=== PATIENT | male | born 1965 | race African-American/Black ===

== ENCOUNTER 2017-08-01 00:05 | Observation (INO) | payer MEDICARE ==
[2017-08-01] MEDS ORDERED: NS 0.9% 1000 ML* 1,000 ML IV SCH ×2 (00:45→12:00)
[2017-08-01 01:22] LABS: ABS Basophils 0 10^3/ul (0-0.2); ABS Eosinophils 0.1 10^3/ul (0-0.6); ABS Lymphocytes 0.3 10^3/ul (1.0-4.8); ABS Monocytes 0.8 10^3/ul (0-0.8); ABS Neutrophils 7.9 10^3/ul (1.5-7.7); ABS Nucleated RBC 0 10^3/ul; Hematocrit 42 % (42-52); Mean Corpuscular HGB Conc 33 g/dl (31-36); Mean Corpuscular Hemoglobin 26 pg (27-31); Mean Corpuscular Volume 76 fL (80-94); Mean Platelet Volume 8 um3 (7.4-10.4); Nucleated Red Blood Cells % 0; Platelet Count 245 10^3/ul (150-450); Red Blood Count 5.48 10^6/ul (4.0-5.4); Red Cell Distribution Width 15 % (10.5-15); White Blood Count 9.2 10^3/ul (3.5-10.8)
[2017-08-01 01:30] LABS: INR 1.06 (0.77-1.02)
[2017-08-01 01:33] LABS: EGFR Non-African American 68.8 (>60)
[2017-08-01] MEDS ORDERED: NS 0.9% 1000 ML* 1,000 ML IV ONE (03:36)
[2017-08-01] MEDS ORDERED: Iohexol 350* (CONTRAST) 500 ML MDV IV ONE (03:44)
[2017-08-01 04:46] LABS: Urine Appearance Clear; Urine Blood Negative (Negative); Urine Color Yellow; Urine Ketones Negative (Negative); Urine Protein Negative (Negative); Urine Specific Gravity 1.016 (1.010-1.030); Urine Urobilinogen Negative (Negative)
--- NOTE | 2017-08-01 07:36 | ED ---
Wilder Rodas Natalie, scribed for Bo Breaux MD on 08/01/17 at 0110 . Syncope/Near Syncope - HPI Summary HPI Summary: The pt is a 52 y/o M BIBA to the ED c/o syncope two hours ago. The pt starting feeling warm and diaphoretic, and then doesnt remember what happened. Per the pts significant other, the pt had slurred speech, had a blank stare, and unresponsive for about 15 minutes. He was in this state until EMS arrived. The pt feels normal in the ED. Pt additionally c/o coughing, normal urination, and bilateral pedal edema without pain. Pt denies CP, headache, and ear ache. He has had similar episodes of this, with last one happening three months ago. The pt doesnt take any medications. He is diagnosed with cerebral palsy. - History Of Current Complaint Chief Complaint: EDSyncope Time Seen by Provider: 08/01/17 00:27 Hx Obtained From: Patient, Family/Urban Sociologist Hx From Patient Unobtainable Due To: Other - pt doesn't recall all of the events that occurred Onset/Duration: Lasting Minutes - 15 minutes, Resolved Timing: Minutes Associated Head Trauma: No Aggravating Factor(s): Nothing Alleviating Factor(s): Nothing Associated Signs And Symptoms: Diaphoresis, Other - POSITIVE: "feeling warm," coughing, normal urination, bilateral pedal edema, unresponsive, blank stare, slurred speech; NEGATIVE: CP, headache, ear ache - Allergies/Home Medications Allergies/Adverse Reactions: Allergies Allergy/AdvReac Type Severity Reaction Status Date / Time No Known Allergies Allergy Verified 08/01/17 00:34 Home Medications: Home Medications NK [No Home Medications Reported] 08/01/17 [History Confirmed 08/01/17] PMH/Surg Hx/FS Hx/Imm Hx Previously Healthy: No Endocrine/Hematology History: Reports: Hx Diabetes Neurological History: Reports: Other Neuro Impairments/Disorders - cerebral palsy Infectious Disease History: No Infectious Disease History: Denies: Traveled Outside the [place] in Last 30 Days - Family History Known Family History: Positive: Diabetes Negative: Cardiac Disease Review of Systems Negative: Ear Ache Negative: Chest Pain Positive: Cough Positive: other - normal urination Positive: Edema - bilateral pedal edema without pain Positive: Syncope. Negative: Headache All Other Systems Reviewed And Are Negative: Yes Physical Exam Triage Information Reviewed: Yes Vital Signs On Initial Exam: Initial Vitals Temp Pulse Resp BP Pulse Ox 98.1 F 104 19 144/86 99 08/01/17 00:05 08/01/17 00:05 08/01/17 00:05 08/01/17 00:05 08/01/17 00:05 Vital Signs Reviewed: Yes Appearance: Positive: Well-Appearing, No Pain Distress Skin: Positive: Warm, Skin Color Reflects Adequate Perfusion, Dry Head/Face: Positive: Normal Head/Face Inspection Eyes: Positive: EOMI, YARI ENT: Positive: Normal ENT inspection Neck: Positive: Supple, Nontender Respiratory/Lung Sounds: Positive: Clear to Auscultation, Breath Sounds Present Cardiovascular: Positive: RRR Abdomen Description: Positive: Nontender, Soft Bowel Sounds: Positive: Present Musculoskeletal: Positive: Other - bilateral pedal edema, calves swollen and nontender to palpitation, chronic bilateral leg weakness Neurological: Positive: Normal, Sensory/Motor Intact, Alert, Oriented to Person Place, Time Psychiatric: Positive: Affect/Mood Appropriate Diagnostics - Vital Signs Vital Signs Temp Pulse Resp BP Pulse Ox 08/01/17 00:32 96 17 98 08/01/17 00:30 140/83 08/01/17 00:05 98.1 F 104 19 144/86 99 - Laboratory Lab Results: Lab Results 08/01/17 08/01/17 08/01/17 Range/Units 01:07 01:07 01:07 WBC (3.5-10.8) 10^3/ul RBC (4.0-5.4) 10^6/ul Hgb (14.0-18.0) g/dl Hct (42-52) % MCV (80-94) fL MCH (27-31) pg MCHC (31-36) g/dl RDW (10.5-15) % Plt Count (150-450) 10^3/ul MPV (7.4-10.4) um3 Neut % (Auto) (38-83) % Lymph % (Auto) (25-47) % [place] % (Auto) (1-9) % Eos % (Auto) (0-6) % Baso % (Auto) (0-2) % Absolute Neuts (auto) (1.5-7.7) 10^3/ul Absolute Lymphs (auto) (1.0-4.8) 10^3/ul Absolute Monos (auto) (0-0.8) 10^3/ul Absolute Eos (auto) (0-0.6) 10^3/ul Absolute Basos (auto) (0-0.2) 10^3/ul Absolute Nucleated RBC 10^3/ul Nucleated RBC % INR (Anticoag Therapy) 1.06 H (0.77-1.02) APTT 31.6 (26.0-36.3) seconds D-Dimer, Quantitative 252 H (Less Than 230) ng/mL Sodium 133 (133-145) mmol/L Potassium 3.7 (3.5-5.0) mmol/L Chloride 101 (101-111) mmol/L Carbon Dioxide 24 (22-32) mmol/L Anion Gap 8 (2-11) mmol/L BUN 12 (6-24) mg/dL Creatinine 1.12 (0.67-1.17) mg/dL Est GFR ( Amer) 88.5 (>60) Est GFR (Non-Af Amer) 68.8 (>60) BUN/Creatinine Ratio 10.7 (8-20) Glucose 112 H (70-100) mg/dL Lactic Acid (0.5-2.0) mmol/L Calcium 8.7 (8.6-10.3) mg/dL Magnesium 2.0 (1.9-2.7) mg/dL Total Bilirubin 0.60 (0.2-1.0) mg/dL AST 15 (13-39) U/L ALT 16 (7-52) U/L Alkaline Phosphatase 58 (34-104) U/L Troponin I 0.00 (<0.04) ng/mL C-Reactive Protein 33.85 H (< 5.00) mg/L B-Natriuretic Peptide 27 ( - 100) pg/mL Total Protein 7.5 (6.4-8.9) g/dL Albumin 3.9 (3.2-5.2) g/dL Globulin 3.6 (2-4) g/dL Albumin/Globulin Ratio 1.1 (1-3) Lipase 12 (11.0-82.0) U/L TSH 0.93 (0.34-5.60) mcIU/mL Urine Color Urine Appearance Urine pH (5-9) Ur Specific [place] (1.010-1.030) Urine Protein (Negative) Urine Ketones (Negative) Urine Blood (Negative) Urine Nitrate (Negative) Urine Bilirubin (Negative) Urine Urobilinogen (Negative) Ur Leukocyte Esterase (Negative) Urine Glucose (Negative) Urine Ascorbic Acid (Negative) 08/01/17 08/01/17 08/01/17 Range/Units 01:07 01:07 04:30 WBC 9.2 (3.5-10.8) 10^3/ul RBC 5.48 H (4.0-5.4) 10^6/ul Hgb 14.0 (14.0-18.0) g/dl Hct 42 (42-52) % MCV 76 L (80-94) fL MCH 26 L (27-31) pg MCHC 33 (31-36) g/dl RDW 15 (10.5-15) % Plt Count 245 (150-450) 10^3/ul MPV 8 (7.4-10.4) um3 Neut % (Auto) 86.4 H (38-83) % Lymph % (Auto) 3.0 L (25-47) % [place] % (Auto) 9.3 H (1-9) % Eos % (Auto) 1.0 (0-6) % Baso % (Auto) 0.3 (0-2) % Absolute Neuts (auto) 7.9 H (1.5-7.7) 10^3/ul Absolute Lymphs (auto) 0.3 L (1.0-4.8) 10^3/ul Absolute Monos (auto) 0.8 (0-0.8) 10^3/ul Absolute Eos (auto) 0.1 (0-0.6) 10^3/ul Absolute Basos (auto) 0 (0-0.2) 10^3/ul Absolute Nucleated RBC 0 10^3/ul Nucleated RBC % 0 INR (Anticoag Therapy) (0.77-1.02) APTT (26.0-36.3) seconds D-Dimer, Quantitative (Less Than 230) ng/mL Sodium (133-145) mmol/L Potassium (3.5-5.0) mmol/L Chloride (101-111) mmol/L Carbon Dioxide (22-32) mmol/L Anion Gap (2-11) mmol/L BUN (6-24) mg/dL Creatinine (0.67-1.17) mg/dL Est GFR ( Amer) (>60) Est GFR (Non-Af Amer) (>60) BUN/Creatinine Ratio (8-20) Glucose (70-100) mg/dL Lactic Acid 0.6 (0.5-2.0) mmol/L Calcium (8.6-10.3) mg/dL Magnesium (1.9-2.7) mg/dL Total Bilirubin (0.2-1.0) mg/dL AST (13-39) U/L ALT (7-52) U/L Alkaline Phosphatase (34-104) U/L Troponin I (<0.04) ng/mL C-Reactive Protein (< 5.00) mg/L B-Natriuretic Peptide ( - 100) pg/mL Total Protein (6.4-8.9) g/dL Albumin (3.2-5.2) g/dL Globulin (2-4) g/dL Albumin/Globulin Ratio (1-3) Lipase (11.0-82.0) U/L TSH (0.34-5.60) mcIU/mL Urine Color Yellow Urine Appearance Clear Urine pH 5.0 (5-9) Ur Specific [place] 1.016 (1.010-1.030) Urine Protein Negative (Negative) Urine Ketones Negative (Negative) Urine Blood Negative (Negative) Urine Nitrate Negative (Negative) Urine Bilirubin Negative (Negative) Urine Urobilinogen Negative (Negative) Ur Leukocyte Esterase Negative (Negative) Urine Glucose Negative (Negative) Urine Ascorbic Acid * H (Negative) Result Diagrams: 08/01/17 01:07 08/01/17 01:07 Lab Statement: Any lab studies that have been ordered have been reviewed, and results considered in the medical decision making process. - CT Chest/Thorax CTA CT Interpretation: No Acute Changes - No evidence of acute pathology. ED physician has reviewed this report. CT Interpretation Completed By: Radiologist - EKG 00:06 Cardiac Rate: NL, Tachycardia EKG Rhythm: Sinus Tachycardia - 109 BPM EKG Interpretation: Borderline ST elevation anterolateral leads. No ectopy. Course/Dx Course Of Treatment: BP noted and advised to follow up with PCP. Medications reviewed. SYNCOPE VERSES SEIZURE. ADMIT HOSPITALIST. NO CRITICAL CARE TIME. - Diagnoses Provider Diagnoses: Syncope Discharge - Discharge Plan Condition: Stable Disposition: ADMITTED TO [facility] Referrals: Bo Anaya [Primary Care Provider] - Additional Instructions: Your blood pressure was elevated during todays visit; please follow up with your primary care provider within a week for further evaluation. The documentation as recorded by the Wilder bhat Natalie accurately reflects the service I personally performed and the decisions made by me, Bo Breaux MD.
--- NOTE | 2017-08-01 07:50 | RAD ---
INDICATION: Syncope COMPARISON: None. TECHNIQUE: Single AP portable view of the chest was obtained. FINDINGS: Image quality is compromised due to the relative inferiority of a portable chest x-ray. The heart and mediastinum exhibit normal size and contour. The lungs are grossly clear. There is no evidence of a large pleural effusion. Visualized bones are normal for the patient's age. IMPRESSION: No radiographic evidence for acute cardiopulmonary abnormality on this portable chest x-ray.
--- NOTE | 2017-08-01 07:54 | RAD ---
INDICATION: Syncope and positive d-dimer COMPARISON: None TECHNIQUE: Axial source images were acquired following the administration of 77 mL Omnipaque [address] angiographic technique. Coronal and sagittal reconstructed images were constructed and reviewed. FINDINGS: There there are no filling defects in the pulmonary arteries to indicate acute pulmonary embolic disease. There are no focal infiltrates or effusions. There are no pulmonary parenchymal masses. The heart is normal in size. There is no evidence of pericardial effusion. There is no evidence of aortic aneurysm or dissection. There is no mediastinal, hilar, or axillary lymphadenopathy. Degenerative changes of thoracic spine includes loss of intervertebral disc height and mild anterior marginal osteophyte formation. Limited views of the upper abdomen show no abnormalities. IMPRESSION: No CT of evidence of pulmonary embolism or other acute intrathoracic pathology.
--- NOTE | 2017-08-01 08:21 | RAD ---
Indication: Syncope versus seizure. CT of the brain was performed without IV contrast. Ventricular structures are midline. No midline shift is noted. The extra-axial spaces are unremarkable. There is no evidence of intracranial mass or hemorrhage. No other high or low density lesions are identified. Mastoid air cells and paranasal sinuses are otherwise unremarkable. IMPRESSION: There is no evidence of intracranial mass or hemorrhage.
[2017-08-01] MEDS ORDERED: Ondansetron INJ* 2 MG/ML VIAL IV PRN (11:48)
[2017-08-01] MEDS: Heparin VIAL(*) 5000 UNITS/ML VIAL (FIVE THOUSAND) SUBCUT SCH ×2 (14:30→21:59)
--- NOTE | 2017-08-01 15:09 | RAD ---
INDICATION: Pain and swelling. COMPARISON: None TECHNIQUE: Duplex interrogation of the Lowerextremity was performed. FINDINGS: Deep veins: The common femoral, great saphenous, profunda femoris, proximal, mid, and distal deep femoral, popliteal and posterior tibial veins are patent. There is normal compressibility, augmentation, and phasic flow. The peroneal veins are not seen. This likely related to technical factors related to edema. Superficial veins: There are no findings of superficial thrombophlebitis. Popliteal fossa:There is no evidence of a popliteal cyst. Soft tissues: There is moderate calf edema bilaterally. IMPRESSION: MILDLY LIMITED EXAMINATION DUE TO CALF EDEMA. NO SONOGRAPHIC EVIDENCE OF DEEP VENOUS THROMBOSIS.
[2017-08-01] MEDS: Oseltamivir CAP* 75 MG PO SCH ×2 (16:11→21:58)
--- NOTE | 2017-08-01 17:06 | ECHO ---
Patient: GRACIELA GUTIERREZ [facility] Rec#: [id number] : 1965 Date: 08/01/2017 Age: 52y Height: 170.2 cm / 67.0 in Weight: 90.7 kg / 199.9 lbs Sex: M BSA: 2.02 Room#: [facility] Admit Date#: 08/01/2017 Type: Inpatient Referring: Shiraz Klein NP Reading: Josué Atkinson MD Soccer Player: Rhonda Lake RN RDCS Transthoracic Echocardiogram Indication: Syncope BP: 150/90 HR: 108 Rhythm: Tachycardia Findings History: HTN, DM, cerebral palsy, increased BMI Technical Comments: The study quality is fair. The study is technically limited due to patient body habitus. Completed at 1530. Left Ventricle: The left ventricular chamber size is normal. Mild to moderate concentric left ventricular hypertrophy is observed. Global left ventricular wall motion and contractility are within normal limits. There is normal left ventricular systolic function. The estimated ejection fraction is 60-65%. There is an E to A reversal in the mitral valve flow pattern suggestive of diastolic dysfunction. Left Atrium: The left atrial chamber size is normal. Right Ventricle: The right ventricular chamber size and systolic function are within normal limits. Moderator Band present. Right Atrium: The right atrial cavity size is normal. Aortic Valve: The aortic valve is trileaflet. The aortic valve leaflets are mildly thickened. There is no evidence of aortic regurgitation. There is no evidence of aortic stenosis. Mitral Valve: The mitral valve leaflets are mildly thickened. There is trace to mild mitral regurgitation. There is no evidence of mitral stenosis. Tricuspid Valve: The tricuspid valve leaflets are normal. There is trace tricuspid regurgitation. Unable to estimate the right ventricular systolic pressure. There is no tricuspid stenosis. Pulmonic Valve: The pulmonic valve appears normal. There is a trace pulmonic regurgitation. There is no pulmonic stenosis. Pericardium: There is no significant pericardial effusion. A pericardial fat pad is visualized. Aorta: There is no dilatation of the ascending aorta. The aortic arch is not well visualized. There is no dilation of the aortic root. Pulmonary Artery: The main pulmonary artery appears normal. Venous: The inferior vena cava appears normal in size. There is an approximate 50% respiratory change in the inferior vena cava dimension. Conclusions Global left ventricular wall motion and contractility are within normal limits. There is normal left ventricular systolic function. The estimated ejection fraction is 60-65%. The right ventricular chamber size and systolic function are within normal limits. There is no evidence of aortic regurgitation. There is no evidence of aortic stenosis. There is trace to mild mitral regurgitation. There is trace tricuspid regurgitation. Unable to estimate the right ventricular systolic pressure. There is no significant pericardial effusion. Measurements Name Value Normal Range RVIDd (AP) 2D 2.8 cm (0.9 - 2.6) RVDdMajor (2D) 2.7 cm (2.2 - 4.4) RAd ISD 4CH 4.8 cm (3.4 - 4.9) RA (A4C)W 3.1 cm (2.9 - 4.6) IVSd (2D) 1.4 cm (0.6 - 1) LVPWd (2D) 1.3 cm (0.6 - 1) LVIDd (2D) 4.2 cm (3.6 - 5.4) LVIDs (2D) 3 cm - LV FS (2D) 29 % (25 - 45) Aortic Annulus 2 cm (1.4 - 2.6) Ao root diameter (2D) 3.2 cm (2.1 - 3.5) Ascending Ao 3.2 cm (2.1 - 3.4) LA dimension (AP) 2D 3.3 cm (2.3 - 3.8) LAd ISD 4CH 5 cm (2.9 - 5.3) LA ISD 4CH W 3.8 cm (2.5 - 4.5) Name Value Normal Range LA ESV SP 4CH (A/L) 43 ml - LA ESV SP 2CH (A/L) 34 ml - LA ESV BP (A/L) 39 ml - LA ESV BP (A/L) index 19.3 ml/m2 - LA ESV SP 4CH (MOD) 41 ml - LA ESV SP 2CH (MOD) 32 ml - Name Value Normal Range MV E-wave Vmax 0.7 m/sec - MV deceleration time 236 msec - MV A-wave Vmax 1.3 m/sec - MV E:A ratio 0.5 ratio - LV septal e' Vmax 0.07 m/sec - LV lateral e' Vmax 0.13 m/sec - LV E:e' septal ratio 10 ratio - LV E:e' lateral ratio 5.4 ratio - Name Value Normal Range AV Vmax 1.8 m/sec - AV VTI 27.6 cm - AV peak gradient 12.3 mmHg - AV mean gradient 6.3 mmHg - LVOT Vmax 1.5 m/sec - LVOT VTI 25.5 cm - LVOT peak gradient 8.4 mmHg - LVOT mean gradient 5.1 mmHg - Name Value Normal Range MV Vmax 1.6 m/sec - MV VTI 22.5 cm - MV peak gradient 10.5 mmHg - MV mean gradient 2.8 mmHg - MV PHT 57 msec - MVA (PHT) 3.8 cm2 - Name Value Normal Range IVC diameter 1.1 cm - Name Value Normal Range PV Vmax 1.1 m/sec -
[2017-08-01] MEDS: Acetaminophen TAB* 325 MG PO PRN ×2 (18:29→22:44)
--- NOTE | 2017-08-01 19:41 | HP ---
CC: Dr. Hsu * HISTORY AND PHYSICAL: DATE OF ADMISSION: 08/01/17 PRIMARY CARE PROVIDER: None. ATTENDING PHYSICIAN WHILE IN THE HOSPITAL: Yasir Anderson MD * (report dictated by Shiraz Klein NP) CHIEF COMPLAINT: Altered mental status. HISTORY OF PRESENT ILLNESS: Mr. Ramírez is a 52-year-old male patient who really only carries a history of cerebral palsy who this morning was having a back spasm. He was able to lower himself to the floor, which he normally does, the spasms subsided. He got back up with help from his roommate, he typically says he cannot, he is wheelchair bound. He shortly thereafter became very flushed. According to his roommate, he had had an episode where the patient was just staring off. The roommate was trying to shake him, was yelling his name and he really was just not responding. It lasted about 5 to 10 minutes they believe. Jorge L does recall them saying that they are going to call 911 and he does recall the roommate asking Jorge L if he was okay if he called 911, he remembers ambulance staff showing up and coming in. Apparently, there was reports of incontinence of urine. The patient states for the last couple of days, he has been having fevers and cough off and on. He has not been feeling short of breath. He just has been coughing. He has had runny nose. He has been taking Theraflu [id number] medication. He denied having any chest pain or shortness of breath. He states he has other concern too as he has noticed in the last several days and weeks he has had increasing swelling of the lower extremities. He just relocated here 2 months ago and he has been trying to get set up with a primary. Again there was concern because of this episode, he came in to the ED. We were asked to evaluate for admission due to possible seizure versus syncope. PAST MEDICAL HISTORY: Significant for cerebral palsy. PAST SURGICAL HISTORY: He has had left lower extremity surgery at the age of 11. MEDICATIONS: He denies taking any home medications. ALLERGIES TO MEDICATIONS: Include no known drug allergies. FAMILY HISTORY: His mother had history of CHF. Father had history of [place], CVA, hypertension, and diabetes. SOCIAL HISTORY: He does not smoke, does not drink. His surrogate decision maker is his sister, Dora. REVIEW OF SYSTEMS: There is no documented fever. He denied having any significant weight change. There was no double vision. He denies having any ear discharge. There was no rhinorrhea. There was no sore throat. No thyroid enlargement. He denies having any chest pain. There was no orthopnea. There was no nocturnal dyspnea. There was no abdominal pain. There was no nausea, no vomiting. There was no dysuria, no frequency. There was a question of seizure versus loss of consciousness. No pruritus and no skin ulcerations. Review of 14 systems completed, all others negative. PHYSICAL EXAMINATION GENERAL: At this time, Mr. Ramírez is a 52-year-old male patient. He appears to be well nourished and well developed. He is sitting in the hospital bed. He does not appear to be in any acute distress. VITAL SIGNS: Blood pressure 150/90, pulse 89, respirations 20, O2 sat of 100%, temperature 98.3. HEENT: Head is atraumatic. Eyes: Sclerae were anicteric and not pale. Throat : Oral mucosa appears to be dry. No oropharyngeal erythema. NECK: Supple. LUNGS: Clear to auscultation bilaterally. No wheezes, rales or rhonchi. HEART: Sounds S1, S2. Regular rate and rhythm. No murmurs, rubs or gallops. ABDOMEN: Soft. It was flat. It was nontender. Bowel sounds were present. EXTREMITIES: He has no movement in the lower extremities. He can bend at the knees only, but cannot lift the legs off the bed. He had 5/5 strength in the upper extremities. He does have some spasticity to his left upper arm. He does have +4 pitting edema bilaterally to the lower extremities, particularly in the pedal area. NEUROLOGIC: He is awake. He is alert. He is oriented x3. His tongue is midline. 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 His cranial nerves were intact. He had lower extremity weakness noted. He cannot lift the feet off the bed. He does have a spasticity to the left upper extremity, which is again his baseline. No gross focal deficits. SKIN: Intact. LABORATORY DATA/DIAGNOSTIC STUDIES: WBC 9.2, RBC of 5.48, hemoglobin 14.0, hematocrit 42, platelet count was noted to be 245,000. His INR was 1.06. PTT 31.6. D-dimer 252. Sodium was 133, potassium 3.7, chloride 101, bicarb 24, BUN 12, creatinine 1.12, glucose 112, lactic 0.6, calcium 8.7, mag was 2.0. Total bilirubin is 0.6, AST 15, ALT 16, alk phos 58. Troponin 0. CRP was 33. Albumin was 3.9. TSH was 0.93. Lipase was 12. Urine showed a high ascorbic acid level. He had multiple imaging in the ER, which started out with CTA chest. No CT evidence of pulmonary embolism or other acute intrathoracic problems. He had a CT of the brain which showed there was no evidence of intracranial mass or hemorrhage. He did have a chest x-ray, showed no radiographic evidence of acute cardiopulmonary disease. He did have an EKG obtained today. I do not have a previous for comparison. It shows a sinus tachycardia, rate of 109. He did have a little bit of ST elevations in V4, 5 and 6, but it appears to be early repolarization. There is no previous EKG for comparison. No reciprocal changes. Old medical records are reviewed. ASSESSMENT AND PLAN: Mr. Ramírez is a 52-year-old male patient with history of cerebral palsy only, coming into the ED today with complaints of a syncopal versus seizure episode. We were asked to evaluate for admission. He will be admitted under observation status for: 1. Syncope versus seizure. At this point, EEG was obtained Dr. Hsu, a call has been placed out to him to help us with evaluation. I will go ahead and obtain neuro checks every [address] the patient on telemetry. We will order an echo as well. We will try to obtain orthostatic blood pressures and we will continue to follow him and I will cycle his troponins and we will continue to follow. It does sound suspicious for a seizure-like activity, but I will again get Neurology to involve. 2. Lower extremity swelling. We will get ultrasound of the lower extremities to make sure there is no deep venous thrombosis as he does have a significant amount of swelling there. 3. Cerebral palsy. Continue supportive care. 4. DVT prophylaxis, he is high risk. He was placed on heparin subcu. 5. Code status, full code. 6. Fluids, electrolytes and nutrition. He can have a regular diet. 7. Upper respiratory infection symptoms. I suspect he has a viral upper respiratory infection. I will check the flu swab as well just to make sure we do not need to treat this. We will hydrate the patient and continue supportive care. TIME SPENT: Time spent on the admission was 60 minutes, greater than half the time was spent [id number] with the patient obtaining my history and physical, other half of the time was spent going over the plan of care with the patient and implementing plan of care. I did discuss the plan of care with my attending, Dr. Anderson; he is in agreement. SHIRAZ KLEIN NP [id number]/CPS #: [id number] JEN
--- NOTE | 2017-08-01 20:50 | CONS ---
NEUROLOGY CONSULTATION: DATE OF CONSULT: 08/01/17 REFERRING PROVIDER: Dr. Wyatt. LOCATION: He is an inpatient in room 443. CHIEF COMPLAINT: Episodes of loss of consciousness. HISTORY OF PRESENT ILLNESS: Jorge L Ramírez is a 52-year-old right-handed man who was admitted to the hospital late last night after an episode of unresponsiveness. He is accompanied by his partner of 6 years, who is able to provide a first hand description. For at least 6 years, Mr. Ramírez has episode s where he will feel very hot, flushed, and become unresponsive. Sometimes he just sits and closes h is eyes until it passes, and he feels that he does not lose awareness. With the multiple episodes, h owever, he is observed to be unresponsive for about a minute to 2 minutes and he will come out of it and state that he is very tired. He will often sleep. He often can tell that it is coming on and th at he will say that he does not feel well, that he feels nauseous, and that "it is hot in here." He will often break into a sweat and sometimes his whole body will stiffen. He had an episode last nigh t where he said he did not feel well and that it was getting very hot. He then started slurring his speech and his partner moved his wheelchair to get him on to a sofa or bed. He became unresponsive a nd was "stiff as a 2 x 4." He was profusely sweating. He was staring straight ahead for 2 minutes o r so and was stiff and unresponsive. After that, he started to come around and was very confused. T he whole episode lasted close to 15 to 20 minutes. Jorge L only remembers feeling very flushed and ho t, and the next thing he knew he was on the couch with his partner wiping his head with a cold cloth. He has had these episodes for at least 6 years and perhaps longer. He gets one anywhere from every month to every 3 months. He has never had a seizure diagnosed before. There is no history of heart disease. He has cerebral palsy. There is no history of traumatic brain injury, meningitis, or encephalitis. There is no family history of epilepsy that he is aware of. PAST MEDICAL HISTORY: Mainly notable for CP. He used to take baclofen, but he does not have a prima ry care physician and ran out and does not take it anymore. Other than that, his past medical history is completely unremarkable. MEDICATIONS: He takes no medications at home. Here he has been given subcutaneous heparin 5000 unit s q.8 hours and Zofran as needed for nausea. He was found to be influenza A positive on rapid swab t est and he was just started on Tamiflu today. ALLERGIES: He does not have any allergies. FAMILY HISTORY: Negative for epilepsy to the best that he is aware. SOCIAL HISTORY: He is a nonsmoker, he does not drink alcohol. REVIEW OF SYSTEMS: Notable for being febrile, sweaty, and diffuse achy with a dull headache for the last 48 hours or so. He has been been coughing for the last day or 2 as well. There is no history o f cardiac, pulmonary, renal, GI, or disease. PHYSICAL EXAMINATION: He is well nourished and well hydrated. He has been afebrile throughout his h ospital stay. Blood pressure is running about 130 to 140 systolic over 80 to 90 diastolic, heart rat es in the 80s and regular. Respiratory rate is 17 and oxygen saturation is 99% on room air. Lungs a re clear bilaterally. Heart is in a regular rate and rhythm without murmurs. Carotid pulses are symm etrical and there are no cervical bruits. Oral mucosa is moist and there is no oral trauma. There i s a little pharyngeal erythema, but no exudate. Neck is supple. Neurologically, pupils react equally from 4 to 2.5 mm. Funduscopic exam reveals sharp discs bilatera lly. He has exotropia and upgaze OD. Visual chawla are full to confrontation. Facial musculature i s symmetric. Palate and tongue appear normal and speech is clear. On motor exam, he has good strength in the arms, but a mild spastic catch in the left arm. He has ma rked spasticity in the legs and no volitional movement of the lower extremities. He is diffusely hyp erreflexic. He is alert and oriented and an excellent historian. Memory is intact. Language is fluent. He has good attention, concentration, and adequate fund of knowledge. DIAGNOSTIC STUDIES/LAB DATA: Laboratory data includes a normal CBC other than MCV of 76. Chemistry profile normal on admission, lactic acid was 0.6. CRP is elevated at 33.85 and TSH is normal at 0.93 . Liver enzymes normal. INR is borderline elevated at 1.06, but that was drawn this morning. Influ marie A rapid test is positive and influenza B rapid test is negative. Brain CT was obtained in the advertising statistical clerk hours, and that was interpreted as normal. I reviewed the images and the left sylvian fissure seems to penetrate awfully deep, but it is not clearly abnormal. IMPRESSION: Repetitive tonic seizures. His main risk factor is cerebral palsy. He also has the flu. He had an EEG earlier today which I reviewed and reveals a low voltage fast pattern diffusely. There were no epileptiform discharges. RECOMMENDATION: Recommended MRI of the brain to look for structural abnormalities that might predisp ose to seizures. Recommend treatment with an anticonvulsant. Mr. Ramírez wants to hold off until the MRI is done. I recommended starting Keppra 500 mg p.o. b.i.d. if he agrees. I told him by [place] law, he cannot drive for a minimum of 3 months and usually 6 months from his last seizure and h e will need to notify the DMV before about his new diagnosis. I think once he is on an anticonvulsan t, it would be reasonable to restart him on baclofen for his leg spasms as he says it was helpful in the past when he had it. [id number]/[facility] #: [id number]
--- NOTE | 2017-08-02 00:30 | EEG ---
ELECTROENCEPHALOGRAM REPORT: DATE OF STUDY: 08/01/17 REFERRING PHYSICIAN: Dr. Wyatt. LOCATION: He is an inpatient in the emergency department initially. CLINICAL HISTORY: Episodes of loss of consciousness, rule out seizures. The patient is not on any medications. REPORT: This 16-channel EEG is remarkable for a background activity consisting of a low voltage fast rhythm diffusely. There is a very low abundance alpha rhythm in the occipital derivations that perhaps had 9 cycles per second. There is occasional central slowing later in the tracing consistent with drowsiness. Stage 2 sleep is not achieved. Activation procedures are not attempted. There were no focal, lateralized, or epileptiform abnormalities. CLINICAL IMPRESSION: Borderline abnormal EEG due to diffuse low voltage fast activity which is nonspecific and most commonly seen with drug effect. There were no epileptiform features to this recording. [id number]/[facility] #: [id number] MTDD
[2017-08-02 05:04] LABS: ABS Basophils 0 10^3/ul (0-0.2); ABS Eosinophils 0.1 10^3/ul (0-0.6); ABS Lymphocytes 1.1 10^3/ul (1.0-4.8); ABS Monocytes 0.9 10^3/ul (0-0.8); ABS Neutrophils 4.4 10^3/ul (1.5-7.7); ABS Nucleated RBC 0 10^3/ul; Hematocrit 37 % (42-52); Hemoglobin 12.5 g/dl (14.0-18.0); Lymphocyte % 16.6 % (25-47); Mean Corpuscular HGB Conc 34 g/dl (31-36); Mean Corpuscular Hemoglobin 25 pg (27-31); Mean Corpuscular Volume 76 fL (80-94); Mean Platelet Volume 8 um3 (7.4-10.4); Nucleated Red Blood Cells % 0; Platelet Count 213 10^3/ul (150-450); Red Blood Count 4.92 10^6/ul (4.0-5.4); Red Cell Distribution Width 15 % (10.5-15); White Blood Count 6.5 10^3/ul (3.5-10.8)
[2017-08-02] MEDS: Acetaminophen TAB* 325 MG PO PRN (05:22)
[2017-08-02] MEDS: Heparin VIAL(*) 5000 UNITS/ML VIAL (FIVE THOUSAND) SUBCUT SCH ×2 (05:24→13:39)
[2017-08-02 05:34] LABS: EGFR Non-African American 72.6 (>60)
[2017-08-02] MEDS: Oseltamivir CAP* 75 MG PO SCH (07:46)
--- NOTE | 2017-08-02 10:32 | RAD ---
Indication: Seizures. Patient has a history of cerebral palsy. Image Sequences: Sagittal and axial T1, axial T2, FLAIR, diffusion and susceptibility weighted images of the brain were obtained. Ventricular structures are midline. No midline shift is noted. The extra-axial spaces are unremarkable. There is no evidence of intracranial mass or hemorrhage. Periventricular signal abnormalities are noted on the FLAIR images consistent with chronic ischemic white matter change. No hippocampal abnormality is noted. No restriction of diffusion is noted. Susceptibility weighted images demonstrate no evidence of susceptibility artifact. Mastoid air cells and paranasal sinuses are unremarkable. The parotid glands are grossly unremarkable. IMPRESSION: No intracranial lesion is identified. Atrophy with chronic ischemic white matter change is noted.
--- NOTE | 2017-08-02 11:01 | PN ---
Subjective Date of Service: 08/02/17 Interval History: Patient seen and examined at bedside. Denies fever, chills, shortness of breath , chest discomfort, N/V/D. Pt states that he feels well and wants to go home today. Pt is agreeable to start Keppra but is unable to afford medications at this time. Social work consult pending. Tele: Sinus tachycardia, rate 100-110's. Pt noted to be in 120-130's when moving in bed. Family History: Unchanged from Admission Social History: Unchanged from Admission Past Medical History: Unchanged from Admission Objective Active Medications: Acetaminophen (Tylenol Tab*) 650 mg PO Q4H PRN Reason: FEVER/PAIN Heparin Sodium (Porcine) (Heparin Vial(*)) 5,000 units SUBCUT Q8HR CHIKA Sodium Chloride (Ns 0.9% 1000 Ml*) 1,000 mls @ 75 mls/hr IV PER RATE CHIKA Ondansetron HCl (Zofran Inj*) 4 mg IV Q6H PRN Reason: NAUSEA Oseltamivir Phosphate (Tamiflu Cap*) 75 mg PO BID CHIKA Stop: 08/05/17 21:01 Vital Signs - 8 hr 08/02/17 08/02/17 04:03 07:38 Temperature 98.8 F 98.6 F Pulse Rate 94 91 Respiratory 16 24 Rate Blood Pressure 148/90 140/77 (mmHg) O2 Sat by Pulse 98 96 Oximetry Oxygen Devices in Use Now: None Appearance: NAD, sitting up in bed Ears/Nose/Mouth/Throat: Mucous Membranes Moist Neck: NL Appearance and Movements; NL JVP Respiratory: Symmetrical Chest Expansion and Respiratory Effort, Clear to Auscultation Cardiovascular: NL Sounds; No Murmurs; No JVD, RRR Abdominal: NL Sounds; No Tenderness; No Distention - tachycardia Neurological: Alert and Oriented x 3 Lines/Tubes/Other Access: Clean, Dry and Intact Peripheral IV - site benign Nutrition: Taking PO's Result Diagrams: 08/02/17 04:56 08/02/17 04:56 Additional Lab and Data: Microbiology and Other Data: Microbiology 08/01/17 12:58 Influenza Types A,B Antigen (DANAE) - Final Nasal Specimen received for Influenza A/B Molecular testing Assess/Plan/Problems-Billing Assessment: Mr. Ramírez is a 52 yo male with PMH significant for cerebral palsy who presented to the emergency room for altered mental status. - Patient Problems (1) Seizures Code(s): R56.9 - UNSPECIFIED CONVULSIONS SNOMED Code(s): 36891812 Comment: - Neuro consult, input appreciated - MRI negative - Will start on Keppra 500 mg BID - No driving for 3-6 months (2) Influenza A Code(s): J10.1 - FLU DUE TO OTH IDENT INFLUENZA VIRUS W OTH RESP MANIFEST SNOMED Code(s): 992818277 Comment: - Continue Tamiflu and supportive care (3) Syncope Code(s): R55 - SYNCOPE AND COLLAPSE SNOMED Code(s): 620613536 Comment: - ? multifactoral - syncope and/or seizure - Pt noted to be orthostatic yesterday from laying to sitting (unable to stand) - MRI negative - Echo without significant findings - Will recheck orthostatic VS today (4) Swelling of lower extremity Code(s): M79.89 - OTHER SPECIFIED SOFT TISSUE DISORDERS SNOMED Code(s): 999127549 Comment: - Venous doppler negative for DVT (5) Cerebral palsy Code(s): G80.9 - CEREBRAL PALSY, UNSPECIFIED SNOMED Code(s): 805777759 Comment: - Supportive care (6) DVT prophylaxis Code(s): FTB0666 - SNOMED Code(s): 826705127 Comment: - Continue SQ heparin (7) Full code status Code(s): Z78.9 - OTHER SPECIFIED HEALTH STATUS SNOMED Code(s): 169397053 Status and Disposition: OBV. Discharge to home when medically stable, possibly later today.
[2017-08-02 11:19] VITALS: BP 160/88
[2017-08-02] MEDS ORDERED: levETIRAcetam TAB* 500 MG PO SCH (12:00)
--- NOTE | 2017-08-02 17:11 | CONS ---
NEUROLOGY FOLLOWUP NOTE: DATE OF FOLLOWUP: 08/02/17 HOSPITALIST: Gillian Willson NP LOCATION: He is an inpatient, he is in room 443. CHIEF COMPLAINT: Possible seizures. INTERVAL HISTORY: Since yesterday, Mr. Ramríez feels well. He has not had any further episodes of unresponsiveness and none of his episodes of diaphoresis and feeling hot. He had an MRI of the brain, interpreted as normal. I reviewed it and it looks to me like there may be some gyral abnormalities as fissures in the distribution of the sylvian fissures reach almost to the ventricular lining. In addition, there is a small amount of white matter changes and what was interpreted as atrophy by the radiologist. However, at the 52 years of age with cerebral palsy, I think that is not atrophy, but rather just a developmental. MEDICATIONS: Medications are reviewed and he is on, 1. Heparin subcutaneous 5000 units every 8 hours. 2. Keppra has been prescribed, but he has not taken it. 3. Tamiflu 75 mg p.o. b.i.d. 4. Zofran p.r.n. nausea. PHYSICAL EXAMINATION: He has remained afebrile on physical exam and his blood pressures running around 150 to 160 systolic over 70 to 80 diastolic. Heart rate is in the 90s and regular. Respiratory rate is 20 and oxygen saturation is 98% on room air. He was not examined in more detail. DIAGNOSTIC STUDIES/LAB DATA: Other laboratory data from today includes a slight drop in hemoglobin to 12.5, MCV remains low at 76. Chemistries today are normal other than borderline low calcium at 8.4. EEG from 08/01/17 was borderline abnormal due to diffuse low voltage fast activity, but there were no epileptiform discharges. A transthoracic echocardiogram revealed [id number] concentric left ventricular hypertrophy and there were no other abnormalities. IMPRESSION: My impression is that Mr. Ramírez probably has epilepsy. He has had for years episodes of feeling flushed and sweaty and he feels it coming on. I had a very long discussion with his partner and himself and answered numerous questions. I explained that I think he has epilepsy, even though his EEG does not show any clearcut epileptiform abnormalities. I explained that his MRI, which is interpreted as normal or showing some atrophy and chronic white matter changes, but I expect that is more stigmata related to his cerebral palsy. I explained that one of the reasons I think he has epilepsy is because of his cerebral palsy putting him at increased risk. We talked about potential side effects with Keppra, possible duration of therapy, and driving restrictions. He is still deciding whether or not he wants to take it and says part of the problems is that he does not have any money to afford it until the end of the month. I told him to call my office if he decides he wants, I will send in a prescription and that in any case, I would like to see him in followup in a few weeks to a month or so. I told him he is free to call anytime if he has further questions. TIME SPENT: Over 50% of this 30 minutes visit was spent in direct [id number] counseling and education. [id number]/[facility] #: [id number] JEN
--- NOTE | 2017-08-03 13:15 | DS ---
Cc: Dr. Bo Anaya; Dr. Jovan Hsu DISCHARGE SUMMARY: DATE OF ADMISSION: 08/01/17 DATE OF DISCHARGE: 08/02/17 ATTENDING PHYSICIAN: Ekaterina Arciniega DO (dictated by Yola Christensen NP). PRIMARY CARE PROVIDER: Dr. Bo Anaya. PRIMARY DIAGNOSES: 1. Seizures. 2. Orthostatic hypotension. 3. Influenza A. 4. Hypertension. SECONDARY DIAGNOSIS: Cerebral palsy. CONSULTATIONS FROM THE HOSPITAL: Dr. Jovan Hsu with Neurology. STUDIES WHILE IN THE HOSPITAL: 1. Chest x-ray on 08/01/17, radiologist impression: No radiographic evidence for acute cardiopulmon livan abnormality on this portable chest x-ray. 2. Chest thoracic CTA on 08/01/17, radiologist impression: No CT evidence of pulmonary embolus or o ther intrathoracic pathology. 3. Brain CT on 08/01/17, radiologist impression: There is no evidence of intracranial mass or hemor rhage. 4. Transthoracic echocardiogram on 08/01/17, councilman conclusion: Global left ventricular wall motion and contractility are within normal limits. There is normal left ventricular systolic functio n. Estimated ejection fraction is 60% to 65%. The right ventricular chamber size and systolic funct ion are within normal limits. There is no evidence for aortic regurgitation, no evidence of aortic s tenosis, there is trace to mild mitral regurgitation, trace tricuspid regurgitation. Unable to estim ate the right ventricular systolic pressure. There is no significant pericardial effusion. 5. Bilateral lower extremity venous Doppler studies from 08/01/17, radiologist impression: Mildly l imited examination due to the calf edema. No sonographic evidence of deep vein thrombosis. 6. Electroencephalogram on 08/01/17. Neurologist clinical impression: Borderline abnormal EEG due to diffuse low voltage fast activity, which is nonspecific and most commonly seen with drug effect. There were no epileptiform features to this recording. 7. Brain MRI from 08/01/17, radiologist impression: No intracranial lesion is identified. Atrophy with chronic ischemic white matter changes noted. DISCHARGE MEDICATIONS: New home medications: 1. Keppra 500 mg oral twice daily. 2. Tamiflu 75 mg oral twice daily for 7 more doses. Continued home medication: None. HISTORY OF PRESENT ILLNESS/HOSPITAL COURSE: Mr. Ramírez is a 52-year-old male with past medical histo ry significant for cerebral palsy who presented to the emergency room with back spasms. He was able to lower himself to the floor, which he normally does and his spasms subsided. When he got back up w ith help from his roommate, he became very flushed and had an episode of starring off according to th e roommate. The roommate was trying to shake him with yelling his name and he was not responding, th is lasted for 5 to 10 minutes. Jorge L recalls them saying they were going to call 911 and responded when his caregiver asked if it was okay to call 911. He remembers the EMS staff arriving. There is also report of urinary incontinence during this episode. Over the past several days, the patient had reported fevers and cough intermittently in addition to shortness of breath and a runny nose. He rascon s been taking Theraflu [id number]. While in the emergency room, the patient had influenza A that was positive. His other labs were fair ly unremarkable. He had a slightly elevated CRP of 33.85, negative urinalysis, and hospitalists were asked to evaluate the patient for admission. While in the hospital, the patient was seen in consultation by Neurology who felt that this was most likely a seizure and he was started on Keppra 500 mg twice daily. Once he was willing to agree, it w as held off until he had an MRI which was negative. The patient also had a venous Doppler ultrasound of bilateral legs due to lower extremity edema. He had a transthoracic echocardiogram showing no si gnificant findings in addition. The patient was noted to be hypertensive, it was felt this may be se condary to anxiety from being here. He was reluctant to be started on extra medications that he did not need. He did have orthostatic hypotension on admission, this did slightly improve during his sta y. He was noted to be intermittently tachycardiac most notably when he was arguing with his roommate . The patient was started on Tamiflu. Mr. Ramírez is stable for discharge to home today. Vital signs are as follows, temperature 98.4, hear t rate 92, respiratory rate 20, O2 sat 98% on room air, blood pressure 150/76. DISCHARGE PLANS: Mr. Ramírez will be discharged to home. Activity as tolerated. He is wheelchair suzy nd due to cerebral palsy. He should be on a heart-healthy low- sodium diet. 1. As far as his influenza, he will be continued on Tamiflu 75 mg oral twice daily for 7 more doses. 2. In regards to his hypertension, I have recommended that he follow up with his primary care provid er and he is reluctant to start on any extra medications at this time. 3. Seizures: It is suspected that the patient's episode was seizure, he has been started on Keppra 500 mg twice daily here. I have encouraged the patient to please slat pickler his medications. He was se en in consultation with social work due to saying he was unable to afford his medications and I did s end a prescription in to his pharmacy for Keppra, although at the time of the patient's discharge he had stated he did not want to start this. The patient could also be restarted on baclofen for his le g spasms, but again he was not wanting extra medications since he stated he was unable to afford them at this time. The patient should be seen in followup by his primary care provider Dr. Anaya or somebody else here in town. He has an appointment with Dr. Anaya on 08/23/17 at 2:45 p.m. The patient has a followup appointment with Dr. Hsu with Neurology on 08/29/17 at 10:30 a.m. The patient has been encourage d to stay hydrated. It has also been recommended that if he drive, he does not drive for 3 to 6 chris hs and to notify the DMV. He has been asked to return to the emergency room for any chest pain or sh ortness of breath. This is a summarized report of a complex medical history and hospital stay. For further details, ple ase see the entire medical record. Time for this discharge was approximately 60 minutes, greater than half of that was spent with the migel burk discussing discharge plans and instructions. CONDITION ON DISCHARGE: Stable. YOLA CHRISTENSEN, ALEJANDRO [id number]/[facility] #: [id number]
== END 2017-08-02 14:30 | disposition home or self-care (01) ==
LOC: ED 00:05 → MEDTELE 09:44
PROVIDERS: ADMIT Internal Medicine; ATTEND Internal Medicine
DX: R56.9 Unspecified convulsions (principal); J10.1 Influenza due to other identified influenza virus with other respiratory manifestations; M79.89 Other specified soft tissue disorders; G80.9 Cerebral palsy, unspecified; R55 Syncope and collapse; Z78.9 Other specified health status
CPT/HCPCS: 36415; 70450; 70551; 71045; 71275; 80048; 80053; 81003; 83605; 83690; 83735; 83880; 84443; 84484; 85025; 85379; 85610; 85730; 86140; 87502; 93005; 93306; 93970; 95819; 99285; A9270-GY; G0378; J1644; Q9967